=== PATIENT | female | born 1970 | race Two or more races ===

== ENCOUNTER 2019-11-24 07:23 | Inpatient (IN) | payer OTHER ==
[~2019-11-24] VITALS: Ht 154.9 cm; Wt 59.4 kg
[~2019-11-24 07:23] MED LIST: CRESTOR10 MG PO
== END 2019-11-25 10:29 | DRG 743 ==
LOC: CIR.AMB 07:23 → ADM 11:45 → CIR.AMB 17:00 → OB/GYN 18:32
PROVIDERS: ADMIT Obstetrics & Gynecology Gynecologic Oncology; ATTEND Obstetrics & Gynecology Gynecologic Oncology
PROC: 0UT14ZZ Resection of Left Ovary, Percutaneous Endoscopic Approach (ICD-10-PCS; 2019-11-24)
PROC: 0DNW4ZZ Release Peritoneum, Percutaneous Endoscopic Approach (ICD-10-PCS; 2019-11-24)
PROC: 0TN74ZZ Release Left Ureter, Percutaneous Endoscopic Approach (ICD-10-PCS; 2019-11-24)
PROC: 0UT64ZZ Resection of Left Fallopian Tube, Percutaneous Endoscopic Approach (ICD-10-PCS; principal; 2019-11-24 17:00)
DX: N83.02 Follicular cyst of left ovary (principal); K66.0 Peritoneal adhesions (postprocedural) (postinfection)